=== PATIENT | female | born 1980 | race Hispanic/Latino ===

== ENCOUNTER 2017-11-06 16:01 | Emergency (ER) | payer MEDICAID ==
[2017-11-06] MEDS ORDERED: Sodium Chloride 0.9% 1,000 ML IV STA (16:29)
[2017-11-06 16:31] VITALS: TEMP 98.3; BMI 34.7
--- NOTE | 2017-11-06 16:56 | ED PDOC ---
Arrival/HPI - General Chief Complaint: Syncope Time Seen by Provider: 11/06/17 16:08 Historian: Patient - History of Present Illness Narrative History of Present Illness (Text): 11/06/17 16:30 A 37 year old female, who denies any significant past medical history, presents to the emergency department for syncopal episode prior to arrival. The patient reports she has dizziness for the last couple of days and she can't differentiate if she is feeling lightheaded or has vertigo. The patient occasionally feels nauseous. She notes that she has had similar episodes in the past, but never actually syncope, so she didn't seek medical attention. The patient is currently being worked up for MS by her neurologist. The patient denies any chest pain, headaches, shortness of breath, palpitations, fever, cough, vomiting, diarrhea, or any other complaints at this time. The patient admits to being sick 1 week ago with a URI, but that has fully resolved. Time/Duration: Prior to Arrival Symptom Onset: Sudden Symptom Course: Other Severity Level: Mild Activities at Onset: Light Context: Home Past Medical History - Provider Review Nursing Documentation Reviewed: Yes - Cardiac Hx Cardiac Disorders: No - Pulmonary Hx Respiratory Disorders: No - Neurological Hx Neurological Disorder: No - HEENT Hx HEENT Disorder: No - Renal Hx Renal Disorder: No - Endocrine/Metabolic Hx Diabetes Mellitus Type 2: Yes - Hematological/Oncological Hx Blood Disorders: No - Integumentary Hx Dermatological Disorder: No - Musculoskeletal/Rheumatological Hx Musculoskeletal Disorders: No - Gastrointestinal Hx Gastrointestinal Disorders: No - Genitourinary/Gynecological Hx Genitourinary Disorders: No - Psychiatric Hx Psychophysiologic Disorder: No Hx Substance Use: No Family/Social History - Physician Review Nursing Documentation Reviewed: Yes Family/Social History: No Known Family HX Smoking Status: Never Smoked Hx Alcohol Use: No Hx Substance Use: No Allergies/Home Meds Allergies/Adverse Reactions: Allergies metformin Allergy (Verified 11/06/17 16:14) RASH Home Medications: Home Meds Medication Instructions Recorded Confirmed GlipiZIDE [Glucotrol] 0 mg PO DAILY 11/06/17 11/06/17 Review of Systems - Physician Review All systems were reviewed & negative as marked: Yes - Review of Systems Constitutional: absent: Fevers Respiratory: absent: SOB, Cough Cardiovascular: absent: Chest Pain, Palpitations Gastrointestinal: Nausea. absent: Diarrhea, Vomiting, Appetite Changes Neurological: Dizziness, Other (syncope ). absent: Headache Physical Exam Vital Signs Reviewed: Yes Vital Signs Temp Pulse Resp BP Pulse Ox 11/06/17 18:45 82 18 136/90 98 11/06/17 17:23 79 18 135/89 99 11/06/17 16:18 98.3 F 89 15 138/93 H 99 Temperature: Afebrile Blood Pressure: Hypertensive Pulse: Regular Respiratory Rate: Normal Appearance: Positive for: Well-Appearing, Non-Toxic, Comfortable Pain Distress: None Mental Status: Positive for: Alert and Oriented X 3 Finger Stick Blood Glucose: 316 - Systems Exam Head: Present: Atraumatic, Normocephalic Pupils: Present: PERRL Extroacular Muscles: Present: EOMI Conjunctiva: Present: Normal Mouth: Present: Moist Mucous Membranes Neck: Present: Normal Range of Motion Respiratory/Chest: Present: Clear to Auscultation, Good Air Exchange. No: Respiratory Distress, Accessory Muscle Use Cardiovascular: Present: Regular Rate and Rhythm, Normal S1, S2. No: Murmurs Abdomen: Present: Normal Bowel Sounds. No: Tenderness, Distention, Peritoneal Signs Back: Present: Normal Inspection Upper Extremity: Present: Normal Inspection. No: Cyanosis, Edema Lower Extremity: Present: Normal Inspection. No: Edema Neurological: Present: GCS=15, CN II-XII Intact, Speech Normal Skin: Present: Warm, Dry, Normal Color. No: Rashes Psychiatric: Present: Alert, Oriented x 3, Normal Insight, Normal Concentration Medical Decision Making ED Course and Treatment: 11/06/17 16:55 Impression: A 37 year old female, status post syncope. Differential Diagnosis included but are not limited to: Plan: -- Head CT -- EKG -- Chest X-ray -- Labs -- IV Fluids -- test -- Urinalysis -- Reassess and disposition Progress Notes: EKG: Ordered, reviewed, and independently interpreted the EKG. Rate : 87BPM Rhythm : NSR Interpretation : No ST-segment elevations or depressions, no T-wave inversions, normal intervals. Fingerstick: 316 CXR : NAD, as read by SUSI CT head (-). On reevaluation, the patient reports mild improvement of symptoms. she still reports mild dizziness but denies any headache, chest pain, shortness of breath , palpitations, nausea. On exam, lungs clear to auscultation, cardiac regular rate and rhythm, repeat neuro exam shows no focal findings, gait not tested as the patient refuses walk, however she can stand. diagnostic results discussed with the patient in great detail. Based on history, exam and diagnostic results plan will be for inpatient observation for further evaluation. However the patient states that she does not want to be admitted in the hospital alone without her significant other constantly by her side. Charge nurse Malka and nursing supervisor warping department Jie, state that the patient's significant other cannot stay with her overnight in the hospital as per hospital policy. Therefore the patient wishes to leave AMA. Patient refuses further care, evaluation, treatment in the hospital and inpatient observation/admission. Patient informed of the reasons for the following and planned treatment, which patient understands, however still refuses. Patient informed of the risk and benefits of treatment. Informed that the risk could include worsening of current conditions, undiagnosed conditions, disability or even . Patient understands the following risk and the benefits of treatment. Patient has the capacity to make decisions and still refuses treatment by RN, PA and ER MD. Patient encouraged to return to the ER at any time and to follow up with pmd. FS 264 - Lab Interpretations Lab Results: 11/06/17 16:45 11/06/17 16:45 Lab Results 11/06/17 16:45: Urine Color Yellow, Urine Appearance Clear, Urine pH 6.0, Ur Specific [place] 1.020, Urine Protein Negative, Urine Glucose (UA) >=1000, Urine Ketones >=80, Urine Blood Trace-lysed H, Urine Nitrate Negative, Urine Bilirubin Negative, Urine Urobilinogen 0.2, Ur Leukocyte Esterase Negative, Urine RBC 0 - 2, Urine WBC 0 - 2, Ur Epithelial Cells 0 - 2, Urine Bacteria Neg 11/06/17 16:45: Sodium 138, Potassium 4.1, Chloride 100, Carbon Dioxide 25, Anion Gap 17, BUN 8, Creatinine 0.5 L, Est GFR ( Amer) > 60, Est GFR (Non -Af Amer) > 60, Random Glucose 348 H*, Calcium 9.7, Total Bilirubin 0.6, AST 15 , ALT 29, Alkaline Phosphatase 100, Lactate Dehydrogenase 350, Total Creatine Kinase 31 L, Troponin I < 0.01, Total Protein 7.7, Albumin 4.4, Globulin 3.2, Albumin/Globulin Ratio 1.4 11/06/17 16:45: WBC 7.9, RBC 4.92, Hgb 14.2, Hct 41.5, MCV 84.3, MCH 28.9, MCHC 34.2, RDW 13.0, Plt Count 319, MPV 10.8, Gran % 68.1 H, Lymph % (Auto) 22.9, [place] % (Auto) 6.9 H, Eos % (Auto) 0.8 L, Baso % (Auto) 1.3, Gran # 5.40, Lymph # 1.8, [place] # 0.6, Eos # 0.1, Baso # 0.10 11/06/17 16:11: POC Glucose (mg/dL) 316 H - RAD Interpretation Narrative RAD Interpretations (Text): 11/06/17 19:03 CT HEAD w/o CONTRAST : FINDINGS: HEMORRHAGE: No acute parenchymal, subarachnoid or extra-axial hemorrhage. BRAIN: No evidence of large acute infarct. No obvious parenchymal nor extra-axial mass or collection seen on this noncontrast study. VENTRICLES: Unremarkable. No hydrocephalus. CALVARIUM: Unremarkable. PARANASAL SINUSES: Unremarkable as visualized. No significant inflammatory changes. MASTOID AIR CELLS: Unremarkable as visualized. No inflammatory changes. OTHER FINDINGS: None. IMPRESSION: No acute intracranial hemorrhage. Radiology Orders: 11/06/17 16:28 CHEST PORTABLE [RAD] Stat 11/06/17 16:29 HEAD W/O CONTRAST [CT] Stat - Medication Orders Current Medication Orders: Discontinued Medications Sodium Chloride (Sodium Chloride 0.9%) 1,000 mls @ 1,000 mls/hr IV .Q1H STA Stop: 11/06/17 17:28 Last Admin: 11/06/17 17:38 Dose: 1,000 mls/hr eMAR Start Stop Document 11/06/17 17:38 [email or web address] (Rec: 11/06/17 17:38 [email or web address] [facility] [id number] Intravenous Solution Start Date 11/06/17 Start Time 17:38 Ondansetron HCl (Zofran Inj) 4 mg IVP STAT STA Stop: 11/06/17 17:55 Last Admin: 11/06/17 18:24 Dose: 4 mg IVP Administration Document 11/06/17 18:24 SF (Rec: 01/01/18 18:24 [place] [facility] [id number] Charges for Administration # of IVP Administrations 1 - PA / [employer] / Resident Statement MD/DO has reviewed & agrees with the documentation as recorded. - Scribe Statement The provider has reviewed the documentation as recorded by the Scribe Lizette Ledesma Provider Scribe Attestation: All medical record entries made by the Scribe were at my direction and personally dictated by me. I have reviewed the chart and agree that the record accurately reflects my personal performance of the history, physical exam, medical decision making, and the department course for this patient. I have also personally directed, reviewed, and agree with the discharge instructions and disposition. Disposition/Present on Arrival - Present on Arrival Any Indicators Present on Arrival: No History of DVT/PE: No History of Uncontrolled Diabetes: No Urinary Catheter: No History of Decub. Ulcer: No History Surgical Site Infection Following: None - Disposition Have Diagnosis and Disposition been Completed?: Yes Diagnosis: Syncope Disposition: AGAINST MEDICAL ADVICE Disposition Time: 18:30 Patient Plan: Other (Patient wishes to leave [facility] because she refuses to stay overnight in the hospital without her significant other. ) Condition: UNKNOWN Discharge Instructions (ExitCare): Syncope (ED), Against Medical Advice (ED) Print Language: MALIAN Additional Instructions: Thank you for letting us take care of you today. You were treated for syncope. The emergency medical care you received today was directed at your acute symptoms. Return to the Emergency Department if your symptoms worsen, do not improve, if you have any other problems, or if you change your mind. Please contact your doctor in 2 days for re-evaluation and follow up. Bring any paperwork you were given at discharge with you along with any medications you are taking to your follow up visit. Our treatment cannot replace ongoing medical care by a primary care provider (PCP) outside of the emergency department. Thank you for allowing the [facility] team to be part of your care today. Referrals: [facility] Jeff Remichelle, [Primary Care Provider] - Follow up with primary Forms: [employer] ([place])
[2017-11-06 17:24] VITALS: RESP 18
--- NOTE | 2017-11-06 17:43 | CT ---
PROCEDURE: CT HEAD WITHOUT CONTRAST. HISTORY: Syncope COMPARISON: None available. TECHNIQUE: Axial computed tomography images were obtained through the head/brain without intravenous contrast. Radiation dose: Total exam DLP = 742.49 mGy-cm. This CT exam was performed using one or more of the following dose reduction techniques: Automated exposure control, adjustment of the mA and/or kV according to patient size, and/or use of iterative reconstruction technique. FINDINGS: HEMORRHAGE: No acute parenchymal, subarachnoid or extra-axial hemorrhage. BRAIN: No evidence of large acute infarct. No obvious parenchymal nor extra-axial mass or collection seen on this noncontrast study. VENTRICLES: Unremarkable. No hydrocephalus. CALVARIUM: Unremarkable. PARANASAL SINUSES: Unremarkable as visualized. No significant inflammatory changes. MASTOID AIR CELLS: Unremarkable as visualized. No inflammatory changes. OTHER FINDINGS: None. IMPRESSION: No acute intracranial hemorrhage.
[2017-11-06 17:45] LABS: ALB/GLOB RATIO 1.4 (1.1-1.8); ALBUMIN 4.4 g/dL (3.0-4.8); ALT/SGPT 29 U/L (7-56); AST/SGOT 15 U/L (14-36); BLOOD UREA NITROGEN 8 mg/dL (7-21); CALCIUM 9.7 mg/dL (8.4-10.5); GFR AFRICAN-AMERICAN > 60; GFR NON-AFRICAN AMERICAN > 60
[2017-11-06 17:48] LABS: TROPONIN I < 0.01 ng/mL
[2017-11-06 17:54] LABS: BASO # 0.1 K/mm3 (0.0-2.0); BASO % 1.3 % (0.0-3.0); EOS # 0.1 (0.0-0.7); EOS % 0.8 % (1.5-5.0); GRAN # 5.4 (1.4-6.5); GRAN % 68.1 % (50.0-68.0); HEMOGLOBIN 14.2 g/dL (12.0-16.0); LYMPH # 1.8 (1.2-3.4); LYMPH % 22.9 % (22.0-35.0); MEAN CELL VOLUME 84.3 fl (80.0-105.0); MEAN CORPUSCULAR HEMOGLOBIN 28.9 pg (25.0-35.0); MEAN CORPUSCULAR HGB CONC 34.2 g/dl (31.0-37.0); MEAN PLATELET VOLUME 10.8 fl (7.0-11.0); MONO # 0.6 (0.1-0.6); MONO % 6.9 % (1.0-6.0); RBC 4.92 10^6/uL (3.5-6.1); WHITE BLOOD COUNT 7.9 10^3/ul (4.5-11.0)
--- NOTE | 2017-11-06 17:59 | RAD ---
HISTORY: syncope COMPARISON: No prior. FINDINGS: LUNGS: No acute consolidation,. PLEURA: No significant pleural effusion identified, no pneumothorax apparent. CARDIOVASCULAR: Normal. OSSEOUS STRUCTURES: No significant abnormalities. VISUALIZED UPPER ABDOMEN: Normal. OTHER FINDINGS: None. IMPRESSION: No active disease.
[2017-11-06 18:34] LABS: URINE BILIRUBIN NEGATIVE (NEGATIVE); URINE BLOOD TRACE-LYSED (NEGATIVE); URINE GLUCOSE (UA) >=1000 mg/dL (NEGATIVE); URINE LEUKOCYTE ESTERASE NEGATIVE Leu/uL (NEGATIVE); URINE NITRATE NEGATIVE (NEGATIVE); URINE PROTEIN NEGATIVE mg/dL (<30 mg/dL); URINE UROBILINOGEN 0.2 E.U./dL (<1 E.U./dL)
[2017-11-06 18:37] LABS: URINE APPEARANCE CLEAR (CLEAR); URINE COLOR YELLOW (YELLOW)
[2017-11-06 19:22] LABS: URINE RBC 0 - 2 /hpf (0-2)
[2017-11-06 19:23] LABS: URINE BACTERIA NEG (NEG); URINE EPITHELIAL CELLS 0 - 2 /hpf (0-5); URINE WBC 0 - 2 /hpf (0-6)
[2017-11-06 19:28] VITALS: BP 136/90; PULSE 82; O2SAT 98
--- NOTE | 2017-11-07 09:53 | CARD ---
APPROVED REPORT EKG Measurement Heart [id number] <Conclusion> Normal sinus rhythm Cannot rule out Anterior infarct, age undetermined Abnormal ECG
== END 2017-11-06 18:55 | disposition left against medical advice (07) ==
LOC: ED 16:01
DX: R55 Syncope and collapse (principal); E11.9 Type 2 diabetes mellitus without complications
CPT/HCPCS: 70450; 71045; 80053; 81001; 82550; 82948; 83615; 84484; 85025; 87086; 93005; 96374; 99285; J2405; J7040